=== PATIENT | male | born 1995 | race Caucasian/White ===

== ENCOUNTER 2017-09-07 10:04 | Emergency (ER) | payer OTHER ==
[~2017-09-07] VITALS: Ht 175.3 cm; Wt 79.4 kg
[~2017-09-07 10:04] MED LIST: ALLEGRA ALLERGY60 MG PO; AMOXIL 875 MG875 M1; CARAFATE 1 GM TA1 GM PO; HYDROXYZINE HCL25 M2 PO; IBUPROFEN 800800 M1 PO; NOHOMEMEDICATIONS; PEPCID20 MG PO; TESSALON PERLE100 MG PO; VENTOLIN17 GM INH; ZPAK PO
[2017-09-07] MEDS ORDERED: BENZONATATE200 MG PO (10:42)
[2017-09-07 10:45] VITALS: BP 122/61
== END 2017-09-07 10:55 | disposition home or self-care (01) ==
LOC: M.ERS 10:04
DX: J06.9 Acute upper respiratory infection, unspecified (principal); F41.9 Anxiety disorder, unspecified; Z90.49 Acquired absence of other specified parts of digestive tract; Z88.1 Allergy status to other antibiotic agents

== ENCOUNTER 2017-12-13 11:03 | Emergency (ER) | payer OTHER ==
[~2017-12-13] VITALS: Ht 177.8 cm; Wt 79.4 kg
[~2017-12-13 11:03] MED LIST changes: +BENZONATATE200 MG PO
[2017-12-13 11:27] LABS: URINE BILIRUBIN NEGATIVE (Negative); URINE BLOOD NEGATIVE (Negative); URINE CLARITY CLEAR; URINE COLOR YELLOW; URINE GLUCOSE-RANDOM NEGATIVE (Negative); URINE KETONES NEGATIVE (Negative); URINE LEUKOCYTES-REFLEX NEGATIVE (Negative); URINE NITRITE-REFLEX NEGATIVE (Negative); URINE PROTEIN NEGATIVE (Negative); URINE SPECIFIC GRAVITY >= 1.030 (1.005-1.030); URINE UROBILINOGEN 0.2 E.U./dl (0.2-1.0)
[2017-12-13 11:38] LABS: BACTERIA-REFLEX None Seen /HPF (None Seen); HYALINE CASTS 0-3 Few /LPF (None Seen); MUCUS 4-6 Moderate strn/LPF (None Seen); SQUAMOUS NONE SEEN /LPF (0-3); URINE RBC None Seen /HPF (0-2); URINE WBC-REFLEX 0-5 Rare /HPF (0-5)
[2017-12-13 11:39] VITALS: BP 127/70
[2017-12-13 11:39] LABS: CRYSTALS None Seen /LPF (None Seen)
== END 2017-12-13 11:40 | disposition home or self-care (01) ==
LOC: M.ERS 11:03
PROVIDERS: Nurse Practitioner Family
DX: Z20.2 Contact with and (suspected) exposure to infections with a predominantly sexual mode of transmission (principal); R35.0 Frequency of micturition; F41.9 Anxiety disorder, unspecified; Z90.49 Acquired absence of other specified parts of digestive tract; Z88.2 Allergy status to sulfonamides

== ENCOUNTER 2018-09-27 07:44 | Emergency (ER) | payer OTHER ==
[~2018-09-27] VITALS: Ht 175.3 cm; Wt 77.1 kg
[2018-09-27] MEDS ORDERED: PROZAC20 MG PO (07:57)
[2018-09-27] MEDS ORDERED: TESSALON PERLE100 MG PO (08:04)
[2018-09-27] MEDS ORDERED: FLONASE 0.05%50 MCG NASAL (08:04)
[2018-09-27 08:07] VITALS: BP 117/59
== END 2018-09-27 08:10 | disposition home or self-care (01) ==
LOC: M.ERS 07:44
DX: J06.9 Acute upper respiratory infection, unspecified (principal); F41.9 Anxiety disorder, unspecified; Z90.49 Acquired absence of other specified parts of digestive tract; Z88.2 Allergy status to sulfonamides

== ENCOUNTER 2018-12-08 13:58 | Emergency (ER) | payer OTHER ==
[~2018-12-08] VITALS: Ht 177.8 cm; Wt 79.4 kg
[~2018-12-08 13:58] MED LIST changes: +FLONASE 0.05%50 MCG NASAL; +PROZAC20 MG PO
[2018-12-08] MEDS ORDERED: PREDNISONE 10 M10 MG PO (14:33)
[2018-12-08] MEDS ORDERED: NAPROSYN500 MG PO (14:33)
[2018-12-08] MEDS ORDERED: TRAMADOL 50 MG50 MG PO (14:33)
[2018-12-08 15:47] VITALS: BP 145/56
== END 2018-12-08 15:49 | disposition home or self-care (01) ==
LOC: M.ERS 13:58
DX: M77.01 Medial epicondylitis, right elbow (principal); M25.511 Pain in right shoulder; M25.512 Pain in left shoulder; F41.9 Anxiety disorder, unspecified; Z90.49 Acquired absence of other specified parts of digestive tract; Z88.2 Allergy status to sulfonamides

== ENCOUNTER 2019-01-31 20:08 | Emergency (ER) | payer OTHER ==
[~2019-01-31] VITALS: Ht 177.8 cm; Wt 81.7 kg
[~2019-01-31 20:08] MED LIST changes: +NAPROSYN500 MG PO; +PREDNISONE 10 M10 MG PO; +TRAMADOL 50 MG50 MG PO
[2019-01-31 20:21] LABS: URINE BILIRUBIN NEGATIVE (Negative); URINE BLOOD NEGATIVE (Negative); URINE CLARITY CLEAR; URINE COLOR YELLOW; URINE GLUCOSE-RANDOM NEGATIVE (Negative); URINE KETONES NEGATIVE (Negative); URINE LEUKOCYTES-REFLEX NEGATIVE (Negative); URINE NITRITE-REFLEX NEGATIVE (Negative); URINE PROTEIN NEGATIVE (Negative); URINE UROBILINOGEN 0.2 E.U./dl (0.2-1.0)
[2019-01-31 21:10] VITALS: BP 128/67
== END 2019-01-31 21:10 | disposition home or self-care (01) ==
LOC: M.ERS 20:08
PROVIDERS: Nurse Practitioner Family
DX: R30.0 Dysuria (principal); F41.9 Anxiety disorder, unspecified; Z20.2 Contact with and (suspected) exposure to infections with a predominantly sexual mode of transmission; Z90.49 Acquired absence of other specified parts of digestive tract; Z88.2 Allergy status to sulfonamides

== ENCOUNTER 2019-03-13 01:10 | Emergency (ER) | payer OTHER ==
[~2019-03-13] VITALS: Ht 177.8 cm; Wt 81.7 kg
[2019-03-13 01:59] LABS: INFLUENZA A ANTIGEN Negative (Negative); INFLUENZA B ANTIGEN Negative (Negative)
[2019-03-13] MEDS ORDERED: NORCO 5-325 TA1 EAC1 PO (02:09)
[2019-03-13] MEDS ORDERED: Magic Mouthwash SWISH&SPIT (02:09)
[2019-03-13] MEDS ORDERED: AMOXICILLIN875 MG PO (02:09)
[2019-03-13 02:20] VITALS: BP 132/70
== END 2019-03-13 02:20 | disposition home or self-care (01) ==
LOC: M.ERS 01:10
PROVIDERS: Personal Emergency Response Attendant
DX: J03.90 Acute tonsillitis, unspecified (principal); H66.91 Otitis media, unspecified, right ear; F41.9 Anxiety disorder, unspecified; Z90.49 Acquired absence of other specified parts of digestive tract; Z88.2 Allergy status to sulfonamides

== ENCOUNTER 2019-05-03 14:33 | Emergency (ER) | payer OTHER ==
[~2019-05-03] VITALS: Ht 177.8 cm; Wt 85.7 kg
[~2019-05-03 14:33] MED LIST changes: +AMOXICILLIN875 MG PO; +Magic Mouthwash SWISH&SPIT; +NORCO 5-325 TA1 EAC1 PO
[2019-05-03 14:51] VITALS: BP 130/75
[2019-05-03 15:25] LABS: INFLUENZA A ANTIGEN Negative (Negative); INFLUENZA B ANTIGEN Negative (Negative)
[2019-05-03] MEDS ORDERED: IBUPROFEN 800800 M1 PO (15:41)
[2019-05-03] MEDS ORDERED: PREDNISONE 20 M20 MG PO (15:41)
[2019-05-03] MEDS ORDERED: NORCO 5-325 TA1 EAC1 PO (15:41)
== END 2019-05-03 15:51 | disposition home or self-care (01) ==
LOC: M.ERS 14:33
PROVIDERS: Nurse Practitioner Family
DX: J35.8 Other chronic diseases of tonsils and adenoids (principal); J02.9 Acute pharyngitis, unspecified; H66.92 Otitis media, unspecified, left ear; F41.9 Anxiety disorder, unspecified; Z90.49 Acquired absence of other specified parts of digestive tract; Z88.2 Allergy status to sulfonamides

== ENCOUNTER 2019-06-02 17:57 | Emergency (ER) | payer OTHER ==
[~2019-06-02] VITALS: Ht 175.3 cm; Wt 86.2 kg
[~2019-06-02 17:57] MED LIST changes: +PREDNISONE 20 M20 MG PO
[2019-06-02] MEDS ORDERED: DEPO-TESTO200 MG/1 M IM (18:06)
[2019-06-02] MEDS ORDERED: NORCO 5-325 TA1 EAC1 PO (18:34)
[2019-06-02 18:48] VITALS: BP 140/88
== END 2019-06-02 18:48 | disposition home or self-care (01) ==
LOC: M.ERS 17:57
DX: K08.89 Other specified disorders of teeth and supporting structures (principal); F41.9 Anxiety disorder, unspecified; Z90.49 Acquired absence of other specified parts of digestive tract; Z88.2 Allergy status to sulfonamides